=== PATIENT | male | born 1995 ===

== ENCOUNTER 2019-10-08 15:15 | Emergency (ER) | payer OTHER ==
[2019-10-08 15:35] VITALS: BP 149/83
--- NOTE | 2019-10-08 15:43 | UC ---
Dizzy HPI HPI Summary: 24-year-old male comes in with a chief complaint of an illness which started this morning. Initially he was nauseous and vomited. He is no longer nauseous. He's had diarrhea is watery 4 times. Also feels some sore throat which is worse with swallowing. Is also been having some dizzy episodes with the room spins when he moves his head. Denies any abdominal pain. No complaint of any body aches. - History Of Current Complaint Chief Complaint: UCGeneralIllness Stated Complaint: DIZZY Time Seen by Provider: 10/08/19 15:26 Pain Intensity: 4 - Allergies/Home Medications Allergies/Adverse Reactions: Allergies Allergy/AdvReac Type Severity Reaction Status Date / Time No Known Allergies Allergy Verified 10/08/19 15:35 Home Medications: Home Medications Amoxicillin PO (*) [Amoxicillin 875 MG (*)] 875 mg PO BID #20 tab 10/08/19 [Rx] Meclizine HCl [Motion Sickness Relief] 25 mg PO Q6HR PRN #15 tablet 10/08/19 [Rx ] PMH/Surg Hx/FS Hx/Imm Hx Previously Healthy: Yes - Surgical History Surgical History: Yes Surgery Procedure, Year, and Place: gallbladder 2012 - Family History Known Family History: Positive: Non-Contributory - Social History Alcohol Use: None Substance Use Type: None Smoking Status (MU): Never Smoked Tobacco Review of Systems All Other Systems Reviewed And Are Negative: Yes Constitutional: Positive: Other - SEE HPI Skin: Positive: Negative Eyes: Positive: Negative ENT: Positive: Sore Throat Respiratory: Positive: Negative Cardiovascular: Positive: Negative Gastrointestinal: Positive: Vomiting, Diarrhea, Nausea, Other - SEE HPI Motor: Positive: Negative Neurovascular: Positive: Negative Musculoskeletal: Positive: Negative Neurological/Mental Status: Positive: Negative Psychological: Positive: Negative Is Patient Immunocompromised?: No Physical Exam Triage Information Reviewed: Yes Appearance: Well-Appearing, No Pain Distress, Well-Nourished Vital Signs: Initial Vital Signs Temp 98.6 F 10/08/19 15:31 Pulse 91 10/08/19 15:31 Resp 16 10/08/19 15:31 BP 149/83 10/08/19 15:31 Pulse Ox 97 10/08/19 15:31 Vital Signs Reviewed: Yes Eye Exam: Normal Eyes: Positive: Conjunctiva Clear, Other: - No nystagmus on exam however the patient did feel dizzy with eye motion during the exam. ENT: Positive: Pharyngeal erythema, TMs normal Neck: Positive: Supple Respiratory: Positive: Lungs clear, Normal breath sounds, No respiratory distress Cardiovascular: Positive: RRR Abdomen Description: Positive: Nontender, Soft Bowel Sounds: Positive: Present Musculoskeletal: Positive: Strength Intact, ROM Intact Neurological: Positive: Alert, Muscle Tone Normal Psychological: Positive: Age Appropriate Behavior Skin Exam: Normal Dizzy Course/Dx - Differential Dx/Diagnosis Provider Diagnosis: Strep pharyngitis, Vertigo Discharge ED - Sign-Out/Discharge Documenting (check all that apply): Patient Departure All imaging exams completed and their final reports reviewed: No Studies - Discharge Plan Condition: Stable Disposition: HOME Prescriptions: Amoxicillin PO (*) [Amoxicillin 875 MG (*)] 875 mg PO BID #20 tab Meclizine HCl [Motion Sickness Relief] 25 mg PO Q6HR PRN #15 tablet PRN Reason: Vertigo Patient Education Materials: Strep Throat (ED), Vertigo (ED) Forms: *Work Release Referrals: [facility] [Outside] [facility] [Outside] Additional Instructions: FOLLOW UP WITH YOUR DOCTOR IF NOT COMPLETELY IMPROVED. GET REEVALUATED SOONER IF NOT IMPROVED OR WORSE OR ANY QUESTIONS OR CONCERNS. - Billing Disposition and Condition Condition: STABLE Disposition: Home
[2019-10-08 15:46] LABS: Influenza A Molecular Negative (Negative); Influenza B Molecular Negative (Negative)
== END 2019-10-08 16:15 | disposition home or self-care (01) ==
LOC: UCEAST 15:15
DX: J02.0 Streptococcal pharyngitis (principal); R42 Dizziness and giddiness; R19.7 Diarrhea, unspecified
CPT/HCPCS: 87651; 99202; G0463